=== PATIENT | female | born 1940 | race Caucasian/White ===

== ENCOUNTER 2024-11-05 15:08 | Inpatient (IN) | payer MEDICARE, BC ==
[~2024-11-05 15:08] MED LIST: Iopamidol-370 76% 500 ML MDV (1 ML CHARGE) ONE
[2024-11-05] MEDS ORDERED: Morphine 2 MG/ML VIAL ONE (15:40)
[2024-11-05 15:52] LABS: #Basophils 0.03 10x3/uL (0.0-0.2); #Eosinophils Less than 0.03 10x3/uL (0.0-0.7); %Basophils 0.2 % (0.0-1.0); %Eosinophils 0.1 % (0.0-10.0); %Lymphocytes 5.7 % (21.0-51.0); %Monocytes 7.7 % (0.0-10.0); %Neutrophils 85.2 % (42.0-75.0); Hematocrit 40.4 % (36.0-47.0); Hemoglobin 13.6 g/dL (12.0-16.0); Mean Corpuscular HGB CONC 33.7 g/dL (32.0-36.0); Mean Corpuscular Hemoglobin 28.8 pg (27.0-31.0); Mean Corpuscular Volume 85.4 fL (78.0-98.0); Mean Platelet Volume 8.2 fL (7.4-10.4); Platelet Count 356 10x3/uL (130-400); RBC Distribution Width 13.6 % (11.5-14.5); Red Blood Cell (RBC) Count 4.73 mill/uL (4.20-5.40)
[2024-11-05 15:59] LABS: ALT (SGPT) 23 U/L (8-55); AST (SGOT) 39 U/L (5-34); Albumin 3.2 g/dL (3.4-4.8); Alkaline Phosphatase 112 U/L (40-110); Anion Gap 14 mmol/L (10-20); BUN (Urea Nitrogen) 19 mg/dL (9.8-20.1); Bilirubin, Total 0.5 mg/dL (0.2-1.2); Calc. Creatinine Clearance 0 mL/min (70-130); Calcium 9.8 mg/dL (7.8-10.44); Carbon Dioxide 22 mmol/L (23-31); Chloride 102 mmol/L (98-107); Estimated GFR 70; Globulin 5.2 g/dL (2.4-3.5); Glucose 190 mg/dL (83-110); Potassium 3.9 mmol/L (3.5-5.1); Protein, Total 8.4 g/dL (5.8-8.1); Sodium 134 mmol/L (136-145)
[2024-11-05 16:00] LABS: Troponin I 0.018 ng/mL (< 0.028)
[2024-11-05] MEDS ORDERED: Cefepime 2 GM VIAL ONE (16:40)
[2024-11-05] MEDS ORDERED: Sodium Chloride 0.9% 100 ML ONE (16:40)
[2024-11-05] MEDS ORDERED: Acetaminophen 500 MG TAB ONE (16:40)
[2024-11-05] MEDS: Vancomycin (BATCH) 1.5 GM in Premix 1 BAG IVPB ONE (20:12)
[2024-11-05 20:18] VITALS: BMI 27.4
[2024-11-05 20:37] LABS: Troponin I 0.029 ng/mL (< 0.028)
[2024-11-05] MEDS: levETIRAcetam 500 MG TAB PO SCH (21:21)
[2024-11-05] MEDS: Cholestyramine/Aspartame 4 gm Packet PO SCH (21:21)
[2024-11-05] MEDS: Azithromycin 500 MG in Sodium Chloride 0.9% 250 ML 250 ML IVPB SCH (21:22)
[2024-11-05 22:39] LABS: Troponin I 0.025 ng/mL (< 0.028)
[2024-11-06] MEDS: Acetaminophen 325 MG TAB PO PRN (05:09)
[2024-11-06] MEDS: cefTRIAXone\\ROCEPHIN 1 GM in Sodium Chloride 0.9% 100 ML IVPB SCH (06:03)
[2024-11-06 08:58] LABS: #Basophils 0.04 10x3/uL (0.0-0.2); %Basophils 0.3 % (0.0-1.0); %Eosinophils 0.3 % (0.0-10.0); %Neutrophils 77.3 % (42.0-75.0); Hematocrit 36.2 % (36.0-47.0); Hemoglobin 11.8 g/dL (12.0-16.0); Mean Corpuscular HGB CONC 32.6 g/dL (32.0-36.0); Mean Corpuscular Hemoglobin 27.9 pg (27.0-31.0); Mean Corpuscular Volume 85.6 fL (78.0-98.0); Mean Platelet Volume 8.1 fL (7.4-10.4); Platelet Count 278 10x3/uL (130-400); RBC Distribution Width 13.8 % (11.5-14.5); Red Blood Cell (RBC) Count 4.23 mill/uL (4.20-5.40)
[2024-11-06] MEDS ORDERED: Clopidogrel Bisulfate 75 MG TAB PO SCH (09:00)
[2024-11-06 09:15] LABS: Anion Gap 12 mmol/L (10-20); BUN (Urea Nitrogen) 11 mg/dL (9.8-20.1); Calc. Creatinine Clearance 74 mL/min (70-130); Calcium 9.1 mg/dL (7.8-10.44); Carbon Dioxide 19 mmol/L (23-31); Chloride 106 mmol/L (98-107); Estimated GFR 87; Glucose 133 mg/dL (83-110); Magnesium 1.6 mg/dL (1.6-2.6); Potassium 3.3 mmol/L (3.5-5.1); Sodium 134 mmol/L (136-145)
[2024-11-06] MEDS: Aspirin 81 mg Enteric Coated Tablet PO SCH (09:51)
[2024-11-06] MEDS: HYDROcodone/Acetaminophen 5/325 mg Tablet PO PRN (09:52)
[2024-11-06] MEDS: Magnesium Sulfate In Water 4 GM in Premix 1 BAG IVPB SCH (10:41)
[2024-11-06] MEDS: Potassium Bicarbonate/Cit Ac 20 MEQ TAB PO SCH (10:41)
[2024-11-06] MEDS: Lidocaine 4% Patch TD SCH (13:25)
[2024-11-06 17:14] LABS: Bilirubin Negative (Negative); Blood, Urine Negative (Negative); Clarity Clear (Clear); Glucose, Urine (Dipstick) Normal (Negative); Ketone, Urine Negative (Negative); Leukocyte Negative Leu/uL (Negative); Nitrite Negative (Negative); Protein, Urine (Dipstick) 50 mg/dL (Neg-Trace); RBC/HPF 0-3 HPF (0-3); Specific Gravity, Urine 1.006 (1.002-1.036); Squamous Epithelial 0-3 HPF (0-3); Urobilinogen Normal mg/dL (Less than 2); WBC/HPF 0-3 HPF (0-3)
[2024-11-06 17:16] LABS: Bacteria/HPF 1+ HPF (None Seen)
[2024-11-06] MEDS: Acetaminophen 325 MG TAB PO SCH (17:56)
[2024-11-06] MEDS: Calcium Carbonate 600 MG + Vit D TAB PO SCH (17:59)
[2024-11-06] MEDS: AMPicillin 1 GM in Sodium Chloride 0.9% 100 ML IVPB SCH (19:30)
[2024-11-06] MEDS: Doxycycline 100 MG CAP PO SCH (20:44)
[2024-11-06] MEDS: Folic Acid 1 MG TAB PO SCH (20:44)
[2024-11-06] MEDS: Cyanocobalamin (Vitamin B-12) 1,000 MCG TAB PO SCH (20:44)
[2024-11-06] MEDS: Thiamine 100 MG TAB PO SCH (20:44)
[2024-11-06] MEDS ORDERED: Enoxaparin 80 MG (0.8 mL) SYRINGE SC SCH (21:00)
[2024-11-06] MEDS ORDERED: Metoprolol Tartrate 5 MG (5 mL) VIAL IVP SCH (21:45)
[2024-11-06] MEDS: Amiodarone 150 MG in Dextrose 5% in Water 100 ML IVPB SCH (22:31)
[2024-11-06] MEDS: Amiodarone 450 MG in Dextrose 5% in Water 250 ML IVPB SCH (22:48)
[2024-11-06] MEDS: Cholestyramine/Aspartame 4 gm Packet PO SCH (23:04)
[2024-11-07] MEDS: Transdermal Patch Removal TOP SCH (02:49)
[2024-11-07 04:37] LABS: #Basophils 0.03 10x3/uL (0.0-0.2); %Basophils 0.2 % (0.0-1.0); %Eosinophils 1.6 % (0.0-10.0); %Lymphocytes 19.9 % (21.0-51.0); %Monocytes 9.4 % (0.0-10.0); %Neutrophils 67.7 % (42.0-75.0); Hematocrit 35.5 % (36.0-47.0); Hemoglobin 11.7 g/dL (12.0-16.0); Mean Corpuscular Hemoglobin 28.1 pg (27.0-31.0); Mean Corpuscular Volume 85.3 fL (78.0-98.0); Mean Platelet Volume 8.4 fL (7.4-10.4); Platelet Count 305 10x3/uL (130-400); RBC Distribution Width 13.8 % (11.5-14.5); Red Blood Cell (RBC) Count 4.16 mill/uL (4.20-5.40)
[2024-11-07 04:57] LABS: Anion Gap 11 mmol/L (10-20); BUN (Urea Nitrogen) 16 mg/dL (9.8-20.1); Calc. Creatinine Clearance 66 mL/min (70-130); Calcium 8.8 mg/dL (7.8-10.44); Carbon Dioxide 22 mmol/L (23-31); Chloride 102 mmol/L (98-107); Estimated GFR 83; Glucose 138 mg/dL (83-110); Magnesium 2.1 mg/dL (1.6-2.6); Potassium 3.9 mmol/L (3.5-5.1); Sodium 131 mmol/L (136-145)
[2024-11-08] MEDS: Amiodarone 200 MG TAB PO SCH (08:23)
[2024-11-09] MEDS: AMOXicillin 250 MG CAP PO SCH (14:18)
[2024-11-10] MEDS: Losartan 25 MG TAB PO SCH (09:53)
[2024-11-10 10:41] VITALS: BP 110/79; TEMP 97.8
[2024-11-10] MEDS ORDERED: Amiodarone 200 MG TAB PO SCH (21:00)
== END 2024-11-10 11:10 | DRG 871 ==
LOC: ERS 15:08 → 2NO 18:32 → OBSVTOIN 11-06 11:36
PROVIDERS: ADMIT Internal Medicine; ATTEND Internal Medicine
DX: A41.81 Sepsis due to Enterococcus (principal); J18.9 Pneumonia, unspecified organism; J96.01 Acute respiratory failure with hypoxia; N39.0 Urinary tract infection, site not specified; E87.1 Hypo-osmolality and hyponatremia; E11.9 Type 2 diabetes mellitus without complications; I10 Essential (primary) hypertension; E78.5 Hyperlipidemia, unspecified; Z66 Do not resuscitate; I70.8 Atherosclerosis of other arteries; E87.6 Hypokalemia; I45.10 Unspecified right bundle-branch block; I48.91 Unspecified atrial fibrillation; E83.42 Hypomagnesemia; Z87.11 Personal history of peptic ulcer disease; Z86.73 Personal history of transient ischemic attack (TIA), and cerebral infarction without residual deficits; Z90.49 Acquired absence of other specified parts of digestive tract
CPT/HCPCS: 36415; 36416; 71045; 71275; 76705; 80048; 81001; 83605; 83690; 83735; 83880; 84145; 84443; 84484; 85025; 87040; 87077; 87086; 87186; 93005; 93010; 93306; 94760; 96374; 96375; G0378; J0282; J0290; J0456; J0692; J0696; J2272; J3370; J3475; J7050; J7070; Q9967

== ENCOUNTER 2025-07-03 08:37 | Emergency (ER) | payer MEDICARE, BC ==
[2025-07-03] MEDS ORDERED: Furosemide 40 MG (4 mL) VIAL ONE (09:19)
[2025-07-03 09:48] LABS: ALT (SGPT) 28 U/L (Less than 34); AST (SGOT) 34 U/L (11-34); Albumin 3.6 g/dL (3.1-4.5); Alkaline Phosphatase 84 U/L (40-110); Anion Gap 14 mmol/L (10-20); BUN (Urea Nitrogen) 19 mg/dL (9.8-20.1); Bilirubin, Total 0.4 mg/dL (0.3-1.2); Calc. Creatinine Clearance 0 mL/min (70-130); Calcium 9.2 mg/dL (7.8-10.44); Carbon Dioxide 20 mmol/L (23-31); Chloride 104 mmol/L (98-107); Globulin 3.9 g/dL (2.4-3.5); Glucose 116 mg/dL (83-110); Magnesium 1.8 mg/dL (1.6-2.6); Potassium 3.9 mmol/L (3.5-5.1); Sodium 134 mmol/L (136-145)
[2025-07-03 09:49] LABS: Troponin I 0.017 ng/mL (< 0.028)
[2025-07-03 09:54] LABS: Hematocrit 35.8 % (36.0-47.0); Hemoglobin 11.7 g/dL (12.0-16.0); Mean Corpuscular Hemoglobin 26.9 pg (27.0-31.0); Mean Corpuscular Volume 82.3 fL (78.0-98.0); Platelet Count 37 10x3/uL (130-400); Red Blood Cell (RBC) Count 4.35 mill/uL (4.20-5.40); White Blood Cell (WBC) Count 4.69 10x3/uL (4.8-10.8)
[2025-07-03 10:19] LABS: Burr Cells SLIGHT = 2-5 cells HPF (0-1); Macrocytosis SLIGHT = 6-15 cells HPF (0-5); Platelet Adequacy Comment Platelets Decreased; Polychromasia SLIGHT = 2-3 cells HPF (0-2); Schistocytes SLIGHT = 2-5 cells HPF (0-1); Smudge Cells 2.0 %
[2025-07-03] MEDS ORDERED: Iopamidol-370 76% 500 ML MDV (1 ML CHARGE) ONE (12:44)
[2025-07-03 13:19] LABS: Fibrinogen 292.0 mg/dL (253-463)
[2025-07-03 13:20] LABS: INR-International Normal Ratio 1.2; PTT 31.6 sec (22.9-36.1); Prothrombin Time 14.8 sec (12.0-14.7)
[2025-07-03 13:21] LABS: D-Dimer Test 0.64 mcg/mL (0.27-0.43)
== END 2025-07-03 14:02 | disposition home or self-care (01) ==
LOC: ERS 08:37
DX: J18.9 Pneumonia, unspecified organism (principal); D69.6 Thrombocytopenia, unspecified; I11.0 Hypertensive heart disease with heart failure; I50.9 Heart failure, unspecified; E11.9 Type 2 diabetes mellitus without complications; Z95.0 Presence of cardiac pacemaker; Z79.899 Other long term (current) drug therapy
CPT/HCPCS: 71046; 71275; 80053; 83735; 83880; 84484; 85025; 85379; 85384; 85610; 85730; 93005; 94640; 94760; J1940; 36415; 96374; J7620; Q9967

== ENCOUNTER 2025-07-08 09:15 | Emergency (ER) | payer MEDICARE, BC ==
[2025-07-08 09:44] LABS: #Basophils 0.06 10x3/uL (0.0-0.2); #Eosinophils 0.34 10x3/uL (0.0-0.7); #Monocytes 0.89 10x3/uL (0.11-0.59); #Neutrophils 2.90 10x3/uL (1.40-6.50); %Basophils 1.0 % (0.0-1.0); %Eosinophils 5.6 % (0.0-10.0); %Lymphocytes 30.6 % (21.0-51.0); %Monocytes 14.7 % (0.0-10.0); %Neutrophils 47.8 % (42.0-75.0); Hematocrit 37.7 % (36.0-47.0); Hemoglobin 12.0 g/dL (12.0-16.0); Mean Corpuscular Hemoglobin 26.1 pg (27.0-31.0); Mean Corpuscular Volume 82.0 fL (78.0-98.0); Platelet Count 218 10x3/uL (130-400); Red Blood Cell (RBC) Count 4.60 mill/uL (4.20-5.40); White Blood Cell (WBC) Count 6.07 10x3/uL (4.8-10.8)
[2025-07-08 10:30] LABS: Troponin I 0.010 ng/mL (< 0.028)
[2025-07-08 10:39] LABS: ALT (SGPT) 27 U/L (Less than 34); AST (SGOT) 37 U/L (11-34); Albumin 3.8 g/dL (3.1-4.5); Alkaline Phosphatase 88 U/L (40-110); Anion Gap 15 mmol/L (10-20); BUN (Urea Nitrogen) 27 mg/dL (9.8-20.1); Bilirubin, Total 0.4 mg/dL (0.3-1.2); Calc. Creatinine Clearance 0 mL/min (70-130); Calcium 9.3 mg/dL (7.8-10.44); Carbon Dioxide 20 mmol/L (23-31); Chloride 103 mmol/L (98-107); Globulin 4.0 g/dL (2.4-3.5); Glucose 111 mg/dL (83-110); Potassium 3.9 mmol/L (3.5-5.1); Sodium 134 mmol/L (136-145)
[2025-07-08] MEDS ORDERED: Furosemide 20 MG (2 mL) VIAL ONE (12:47)
== END 2025-07-08 13:43 | disposition home or self-care (01) ==
LOC: ERS 09:15
DX: I11.0 Hypertensive heart disease with heart failure (principal); I50.9 Heart failure, unspecified; E11.9 Type 2 diabetes mellitus without complications; E78.5 Hyperlipidemia, unspecified; Z79.899 Other long term (current) drug therapy; Z79.51 Long term (current) use of inhaled steroids
CPT/HCPCS: 71045; 80053; 83880; 84145; 84484; 85025; 93005; 94760; J1940; 96374